=== PATIENT | female | born 2000 | race Caucasian/White ===

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

== ENCOUNTER 2021-04-11 16:45 | Emergency (ER) | payer OTHER ==
[~2021-04-11] VITALS: Ht 175.3 cm; Wt 129.7 kg
[~2021-04-11 16:45] MED LIST: ACETAMINOPHEN500 M1 PO
[2021-04-11] MEDS ORDERED: METROPOLOL 25 MG. (17:05)
== END 2021-04-11 18:51 | disposition home or self-care (01) ==
LOC: ER
DX: L03.114 Cellulitis of left upper limb (principal); I10 Essential (primary) hypertension

== ENCOUNTER → 2024-10-13 | Emergency (ER) | payer OTHER ==
[~2024-10-13] VITALS: Ht 152.4 cm; Wt 117.9 kg
[~2024-10-13] MED LIST changes: +AMLODIPINE BESYL5 MG; +IRBESARTAN150 MG; +KETOROLAC TROMETHAMINE 60 MG VIAL IM ONE; +METROPOLOL 25 MG.
== END | disposition home or self-care (01) ==
LOC: ER 10:44
DX: S50.11XA Contusion of right forearm, initial encounter (principal); S80.01XA Contusion of right knee, initial encounter; V49.9XXA Car occupant (driver) (passenger) injured in unspecified traffic accident, initial encounter; Y93.89 Activity, other specified; Y92.413 State road as the place of occurrence of the external cause; Y99.9 Unspecified external cause status; I10 Essential (primary) hypertension